=== PATIENT | female | born 1995 | race Caucasian/White ===

== ENCOUNTER 2018-03-31 11:39 | Emergency (ER) | payer OTHER ==
[2018-03-31 12:14] VITALS: BP 121/76
--- NOTE | 2018-03-31 13:41 | UC ---
Psychiatric Complaint HPI - HPI Summary HPI Summary: Pt presents to urgent reporting increased anxiety and stress. 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 Pt is from [place]. Pt states approx 10 days ago her grandmother . Pt states approx 4 weeks ago her father was involved in a car accident resulting in the of another. Pt states he is facing 25 years incarceration. Pt has not been home since this occurred - she is scheduled to go next weekend. Pt states she is feeling very anxoius, has poor sleep, is struggling to focus. Pt states she takes zoloft prescribed by the psychiatrist on [facility]. States she has not seen this academic year - last visit in october. pt states she has been taking her zoloft as prescribed but feels she might need an adjustment or talk to someone. pt is adamant is not SI/HI. Pt has GF who is supportive. No cp, sob , abd pain. no n/v/d. No denies angel, vision changes. Decreased appetite. Pt missing class today to be here. Pt states not . Denies tobacco, ilicit substance use. Pt's medication reviewed this visit - History Of Current Complaint Chief Complaint: UCGeneralIllness Stated Complaint: HEADACHE,FATIGUE Time Seen by Provider: 03/31/18 12:40 Hx Obtained From: Patient Hx Last Menstrual Period: 03/01/18 ?: No Onset/Duration: Gradual Onset Character: Anxious Aggravating Factor(s): Recent Stress - Allergies/Home Medications Allergies/Adverse Reactions: Allergies Allergy/AdvReac Type Severity Reaction Status Date / Time No Known Allergies Allergy Verified 03/31/18 12:10 Home Medications: Home Medications Sertraline* [Zoloft*] 50 mg PO DAILY 03/31/18 [History Confirmed 03/31/18] PMH/Surg Hx/FS Hx/Imm Hx Previously Healthy: Yes Psychological History: Anxiety - Surgical History Surgical History: None - Family History Known Family History: Positive: Hypertension - Social History Occupation: Student Lives: Dormitory/Roommates Alcohol Use: Rare Substance Use Type: None Smoking Status (MU): Never Smoked Tobacco Review of Systems Constitutional: Fatigue - poor sleep, Other - anxious Psychological: Anxious Is Patient Immunocompromised?: No All Other Systems Reviewed And Are Negative: Yes Physical Exam - Summary Physical Exam Summary: Vital Signs Reviewed: Yes A+Ox3, intermittently tearful Eyes: Conjunctiva injected - crying, ROSANA. EOM intact and full ENT: Hearing grossly normal TM x 2 clear, mmoist, uvula midline, no exudate, no erythema Neck: Positive: Supple Respiratory: Positive: No respiratory distress, No accessory muscle use + CTA throughout no w/r Cardiovascular: RRR nl s1, s2 no m/r CBT <2 sec abd soft + BS nt/nd no guarding, no distension Musculoskeletal Exam: MAYNARD x 4 without difficulty Strength Intact, ROM Intact Neurological: Positive: Alert, + sensation throughout Psychological: Positive: Normal Response To Family, intermittent tearful, appropriate, good eye contact Skin: Positive: no rash, Triage Information Reviewed: Yes Vital Signs: Initial Vital Signs Temp 97.6 F 03/31/18 12:07 Pulse 75 03/31/18 12:07 Resp 18 03/31/18 12:07 BP 121/76 03/31/18 12:07 Pulse Ox 99 03/31/18 12:07 Psych Complaint Course/Dx - Course Course Of Treatment: Pt with recent signicifant social stressors and is a college student. Pt with a h/o anxiety. Pt requesting to talk with a mental health person and possible adjsutment to her zoloft. Pt adamantly denie SI/HI. I discussed with pt options - Will send to [facility] by private car. Pt's friends will drive Josefina Jefferson ([phone]) and Radha Florentino. Called report to Dr. Cynthia Perez - aware patient is coming and history - Differential Dx/Diagnosis Provider Diagnoses: anxiety Discharge - Sign-Out/Discharge Documenting (check all that apply): Patient Departure All imaging exams completed and their final reports reviewed: No Studies - Discharge Plan Condition: Stable Disposition: HOME-RECOMMEND TO ED Patient Education Materials: Generalized Anxiety Disorder (ED) Forms: *Gen. Provider Communication Referrals: No Primary Care Phys,NOPCP [Primary Care Provider] - Additional Instructions: The doctor that evaluated you today thinks that you need additional evaluation that can be completed the emergency department. you must go directly to emergency department for further evaluation. This evaluation may include blood work and evaluation with a mental health counselor. This testing will be directed and decided by the provider that evaluate you at the emergency department. If pain becomes worse, you feel lightheaded, y or you have any other concerns while you are being driven to emergency department as recommended to pullelina and contact 911. [facility] - Emergency Department [address] [place] [address] - Billing Disposition and Condition Condition: STABLE Disposition: Home-Recommend to ED
== END 2018-03-31 13:31 | disposition home health service (06) ==
LOC: UCCORT 11:39
DX: F41.9 Anxiety disorder, unspecified (principal); F43.9 Reaction to severe stress, unspecified
CPT/HCPCS: 99212; G0463

== ENCOUNTER → 2018-03-31 14:24 | Emergency (ER) | payer OTHER ==
--- NOTE | 2018-03-31 15:58 | ED ---
Psychiatric Complaint - HPI Summary HPI Summary: This patient is a 23 year old F presenting to ED with a chief complaint of anxiety since 03/17/2018. She reports she is under a significant amount of stress from dealing with her family and her ex. The CC is described as decreased appetite and insomnia. The patient rates the pain 0/10 in severity. Symptoms aggravated by recent stress. Symptoms alleviated by nothing. Patient reports tachycardia in the morning secondary to her anxiety, vomiting secondary to anxiety. Patient denies SI/HI and hearing any voices. The patient currently takes Zoloft 15 mg (started August 2017) which does not help at all. - History Of Current Complaint Chief Complaint: EDMentalHealth Time Seen by Provider: 03/31/18 15:10 Hx Obtained From: Patient Hx Last Menstrual Period: 03/01/18 Onset/Duration: Sudden Onset, Lasting Weeks, Still Present Timing: Weeks Severity Currently: None Character: Anxious Aggravating Factor(s): Recent Stress Alleviating Factor(s): Nothing Associated Signs And Symptoms: Positive: Sleep Disturbance, Appetite Change Related History: Positive For: Prior Psychiatric Issues Has Suicidal: Denies: Thoughts Has Homicidal: Denies: Thoughts - Allergies/Home Medications Allergies/Adverse Reactions: Allergies Allergy/AdvReac Type Severity Reaction Status Date / Time No Known Allergies Allergy Verified 03/31/18 14:37 PMH/Surg Hx/FS Hx/Imm Hx Endocrine/Hematology History: Denies: Hx Diabetes Cardiovascular History: Denies: Hx Hypertension Respiratory History: Denies: Hx Pneumonia Infectious Disease History: Yes Infectious Disease History: Denies: Traveled Outside the [place] in Last 30 Days - Family History Known Family History: Positive: Hypertension - Social History Alcohol Use: Rare Substance Use Type: Reports: None Smoking Status (MU): Never Smoked Tobacco Review of Systems Positive: Other - tachycardia secondary to anxiety Positive: Vomiting - secondary to anxiety, Other - decreased appetite Neurological: Other - insomnia Positive: Anxious, Other - denies SI/HI and hearing any voices All Other Systems Reviewed And Are Negative: Yes Physical Exam - Summary Physical Exam Summary: GENERAL: Patient is a well-developed and nourished F who is lying comfortable in the stretcher. Patient is not in any acute respiratory distress. HEAD AND FACE: Normocephalic EYES: PERRLA, EOMI x 2. EARS: Hearing grossly intact. MOUTH: Oropharynx within normal limits. NECK: Supple, trachea is midline, no adenopathy, no JVD, no carotid bruit. CHEST: Symmetric, no tenderness at palpation LUNGS: Clear to auscultation bilaterally. No wheezing or crackles. CVS: Regular rate and rhythm, S1 and S2 present, no murmurs or gallops appreciated. ABDOMEN: Soft, non-tender. Bowel sounds are normal. No abdominal abnormal pulsations. EXTREMITIES: Full ROM in all major joints, no edema, no cyanosis or clubbing. NEURO: Alert and oriented x 3. No acute neurological deficits. Speech is normal and follows commands. SKIN: Dry and warm PSYCH: denies SI/HI. Triage Information Reviewed: Yes Vital Signs On Initial Exam: Initial Vitals Temp Pulse Resp BP Pulse Ox 98.4 F 102 16 124/97 100 03/31/18 14:33 03/31/18 14:33 03/31/18 14:33 03/31/18 14:33 03/31/18 14:33 Vital Signs Reviewed: Yes Diagnostics - Vital Signs Vital Signs Temp Pulse Resp BP Pulse Ox 03/31/18 14:33 98.4 F 102 16 124/97 100 - Laboratory Lab Statement: Any lab studies that have been ordered have been reviewed, and results considered in the medical decision making process. Course/Dx - Course Assessment/Plan: This patient is a 23 year old F presenting to ED with a chief complaint of anxiety since 03/17/2018. She reports she is under a significant amount of stress from dealing with her family and her ex. This patient was medically cleared. This patient will be signed out to Dr. Mesa, pending dispo , awaiting MHE. - Differential Dx/Clinical Impression Provider Diagnosis: Anxiety Discharge - Sign-Out/Discharge Documenting (check all that apply): Sign-Out Patient Signing out patient TO: Tj Mesa Receiving patient FROM: Lupe Perez - Discharge Plan Condition: Stable Disposition: HOME Prescriptions: hydrOXYzine pamoate [Vistaril] 25 mg PO TID #15 cap Patient Education Materials: Insomnia (ED), Anxiety (ED) Referrals: [facility] [Outside] (Please follow up as soon as possible with [facility]) No Primary Care Phys,NOPCP [Primary Care Provider] - - Billing Disposition and Condition Condition: STABLE Disposition: Home - Attestation Statements Document Initiated by Scribe: Yes Documenting Scribe: Kam Abarca Provider For Whom Scribe is Documenting (Include Credential): Lupe Perez MD Scribe Attestation: I, Kam Abarca, scribed for Lupe Perez MD on 04/02/18 at 0445. Scribe Documentation Reviewed: Yes Provider Attestation: The documentation as recorded by the [email or web address] accurately reflects the service I personally performed and the decisions made by me, Lupe Perez MD
--- NOTE | 2018-03-31 20:20 | ED ---
Progress - Progress Note Progress Note: Patient was signed out from Dr. Perez upon shift change pending MHE. Per Dr. Austin patient will be diagnosed with anxiety due to the recent stress of the patient's father facing residential time. Per Dr. Austin, patient can be discharged home. - Consult/PCP Time Called: 19:00 Course/Dx - Course Course Of Treatment: Patient was signed out from Dr. Perez upon shift change pending MHE. Per Dr. Austin patient will be diagnosed with anxiety due to the recent stress of the patient's father facing residential time. Per Dr. Austin, patient is having difficulty sleeping, but can be discharged home. - Diagnoses Provider Diagnoses: Anxiety Discharge - Sign-Out/Discharge Documenting (check all that apply): Patient Departure - Discharge home, Receiving Sign-Out Receiving patient FROM: Lupe Perez - Upon shift change pending MHE - Discharge Plan Condition: Stable Disposition: HOME Prescriptions: hydrOXYzine pamoate [Vistaril] 25 mg PO TID #15 cap Referrals: No Primary Care Phys,NOPCP [Primary Care Provider] - - Billing Disposition and Condition Condition: STABLE Disposition: Home - Attestation Statements Document Initiated by Scribe: Yes Documenting Scribe: Xenia Castaneda Provider For Whom Scribe is Documenting (Include Credential): Tj Mesa MD Scribe Attestation: Xenia Mariano, scribed for Tj Mesa MD on 03/31/18 at 2020. Scribe Documentation Reviewed: Yes Provider Attestation: The documentation as recorded by the Xenia tyler accurately reflects the service I personally performed and the decisions made by Tj rivas MD
[2018-03-31 20:38] VITALS: BP 107/64
== END | disposition home or self-care (01) ==
LOC: ED 14:24
DX: F41.9 Anxiety disorder, unspecified (principal)
CPT/HCPCS: 99284